=== PATIENT | female | born 1970 | race Caucasian/White ===

== ENCOUNTER 2017-03-22 15:00 | Emergency (ER) | payer BC, OTHER ==
[2017-03-22 15:11] VITALS: BMI 24.2
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
[2017-03-22 17:01] LABS: URINE MARIJUANA THC NEGATIVE ng/ml (CUTOFF=50)
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
[2017-03-22 17:50] VITALS: BP 141/79; PULSE 71; TEMP 98.2
--- NOTE | 2017-03-23 11:36 | EKG ---
Test Reason : Blood Pressure : / mmHG Vent. Rate : 070 BPM Atrial Rate : 070 BPM P-R Int : 154 ms QRS Dur : 086 ms QT Int : 386 ms P-R-T Axes : 067 068 055 degrees QTc Int : 416 ms NORMAL SINUS RHYTHM NORMAL ECG WHEN COMPARED WITH ECG OF 29-AUG-2012 01:47, NO SIGNIFICANT CHANGE WAS FOUND Confirmed by NEMESIO ROJAS MD ([id number]) on 03/23/2017 11:36:09 AM Referred By: Confirmed By:NEMESIO ROJAS MD
== END 2017-03-22 17:38 | disposition home or self-care (01) ==
LOC: JER 15:00
DX: F10.120 Alcohol abuse with intoxication, uncomplicated (principal); I10 Essential (primary) hypertension
CPT/HCPCS: 80307; 84703; 93005; 93010; 99282-25

== ENCOUNTER 2019-02-12 15:06 | Emergency (ER) | payer OTHER, BC ==
[2019-02-12 15:12] VITALS: BP 141/90; PULSE 70; TEMP 98; BMI 26.6
--- NOTE | 2019-02-12 15:13 | PDOC ---
Rapid Medical Evaluation Time Seen by Provider: 02/12/19 15:08 Medical Evaluation: Allergies Allergy/AdvReac Type Severity Reaction Status Date / Time No Known Allergies Allergy Verified 03/22/17 15:11 02/12/19 15:10 I have performed a brief in-person evaluation of this patient. The patient presents with a chief complaint of:fell off chair at work today w/ lower back and L wrist pain Pertinent physical exam findings:marion in place to L wrist I have ordered the following:xray wrist The patient will proceed to the ED for further evaluation. Discharge Disposition - Diagnosis Wrist injury Qualifiers: Encounter type: initial encounter Laterality: left Qualified Code(s): S69.92XA - Unspecified injury of left wrist, hand and finger(s), initial encounter - Referrals - Patient Instructions - Post Discharge Activity
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
== END 2019-02-12 16:22 | disposition home or self-care (01) ==
LOC: JERFT 15:06
PROC: 2W3DX1Z Immobilization of Left Lower Arm using Splint (ICD-10-PCS; principal; 2019-02-12)
DX: S39.012A Strain of muscle, fascia and tendon of lower back, initial encounter (principal); S16.1XXA Strain of muscle, fascia and tendon at neck level, initial encounter; S63.502A Unspecified sprain of left wrist, initial encounter; W07.XXXA Fall from chair, initial encounter; Y93.89 Activity, other specified; Y92.218 Other school as the place of occurrence of the external cause; Y99.0 Civilian activity done for income or pay
CPT/HCPCS: 72050-TC-FY; 72100-TC-FY; 73110-TC-LT-FY; 73130-TC-LT-FY; 99282-25

== ENCOUNTER 2019-10-21 02:39 | Emergency (ER) | payer BC, OTHER ==
[2019-10-21 02:43] VITALS: BMI 27.4
--- NOTE | 2019-10-21 03:04 | PDOC ---
History of Present Illness - General Chief Complaint: Blood Pressure Problem Stated Complaint: HIGH BP Time Seen by Provider: 10/21/19 02:44 - History of Present Illness Initial Comments: Pam Mccarty is a 49 y/o female with PMH significant for HTN and HLD presenting today with high blood pressure. Reports that she was told last week she had HLD in the 300s and started on a statin. Three days ago she started taking her blood pressure and was found to be high in the 180s. She has been taking it every day and today found it in the 220s and called EMS. Reports mild lightheadedness that started yesterday and mid sternal chest pain that is reproducible and non pleuritic that started just prior calling EMS. No shortness of breath/vision changes. Reports urinary frequency. No change in stool. No abdominal pain. No back pain. No leg swelling. Meds: olmesartan, atorvastatin Past History - Medical History Allergies/Adverse Reactions: Allergies Allergy/AdvReac Type Severity Reaction Status Date / Time No Known Allergies Allergy Verified 10/21/19 02:43 Home Medications: Ambulatory Orders Atorvastatin Ca [Lipitor] mg PO HS 10/21/19 Cephalexin [Keflex] 500 mg PO QID 7 Days #28 capsule 10/21/19 Olmesartan Medoxomil [Benicar] mg PO DAILY 10/21/19 COPD: No HTN: Yes Hypercholesterolemia: Yes - Reproductive History Ectopic : Yes - Immunization History Td Vaccination: No - Psycho-Social/Smoking History Smoking Status: No Smoking History: Never smoked Number of Cigarettes Smoked Daily: 0 - Substance Abuse Hx (Audit-C & DAST Scrn) How often the patient has a drink containing alcohol: Never Score: In Men: 4 or > Positive; In Women: 3 or > Positive: 0 Screen Result (Pos requires Nsg. Audit-10AR): Negative In the last yr the pt used illegal drug/Rx for NonMed reason: No Score: Yes response is considered Positive: 0 Screen Result (Positive result requires Nsg. DAST-10): Negative Review of Systems - Review of Systems Comments:: GENERAL/CONSTITUTIONAL: No fever or chills. No weakness. HEAD, EYES, EARS, NOSE AND THROAT: No change in vision. No change in hearing. No sore throat._ CARDIOVASCULAR: Reports mid sternal chest pain. No shortness of breath_ RESPIRATORY: Denies cough, hemoptysis_ GASTROINTESTINAL: No nausea, vomiting, diarrhea or constipation._ GENITOURINARY: No dysuria. Reports mild urinary frequency. MUSCULOSKELETAL: No joint or muscle swelling or pain. No neck or back pain._ SKIN: No rash_ NEUROLOGIC: Reports lightheadedness. No headache, vertigo, loss of consciousness, or change in strength/sensation._ ENDOCRINE: No increased thirst. No abnormal weight change_ HEMATOLOGIC/LYMPHATIC: No anemia, easy bleeding, or history of blood clots._ ALLERGIC/IMMUNOLOGIC: No hives or skin allergy._ *Physical Exam - Vital Signs Last Vital Signs Temp Pulse Resp BP Pulse Ox 97.8 F 74 18 184/101 H 100 10/21/19 02:41 10/21/19 02:41 10/21/19 02:41 10/21/19 02:41 10/21/19 02:41 - Physical Exam GENERAL: Awake, alert, and oriented to person/place/time, in no acute distress_ HEAD: No signs of trauma, normocephalic, atraumatic _ EYES: PERRLA, EOMI, sclera anicteric, conjunctiva clear_ ENT: Hearing grossly normal, nares patent, oropharynx clear without exudates. No uvular deviation. Moist mucosa_ NECK: Normal ROM, supple, no lymphadenopathy, JVD, or masses_ CHEST: TTP mid sternal chest wall with no trauma, bruising, rash. LUNGS: No distress, speaks in full sentences, clear to auscultation bilaterally _ HEART: Regular rate and rhythm, normal S1 and S2, no murmurs appreciated, peripheral pulses normal and equal bilaterally._ ABDOMEN: Soft, nontender, normoactive bowel sounds. No guarding, no rebound. No masses_ EXTREMITIES: Normal inspection, Normal range of motion, no edema. No clubbing or cyanosis_ NEUROLOGICAL: Cranial nerves II through XII grossly intact. Normal speech, normal gait, no focal sensorimotor deficits _ SKIN: Warm, Dry, normal turgor, no rashes or lesions noted_ ED Treatment Course - LABORATORY CBC & Chemistry Diagram: 10/21/19 03:03 10/21/19 03:03 - RADIOLOGY Radiology Studies Ordered: Category Date Time Status CHEST X-RAY PORTABLE* [RAD] Stat Radiology 10/21/19 02:53 Ordered Medical Decision Making - Medical Decision Making 10/21/19 03:03 49F hx of HTN HLD presenting today with concern for high blood pressure and mid sternal reproducible chest pain. -cbc, cmp -ekg, trop, cxr -coags 10/21/19 03:11 EKG shows 68 bpm, NSR, no axis deviation, no ST elevation, QTc 431, nml interv als. 10/21/19 04:05 CXR negative for acute chest pathology. 10/21/19 04:10 Labs reviewed. Laboratory Last Values WBC 3.6 K/mm3 (4.0-10.0) L 10/21/19 03:03 RBC 4.37 M/mm3 (3.60-5.2) 10/21/19 03:03 Hgb 13.4 GM/dL (10.7-15.3) 10/21/19 03:03 Hct 40.4 % (32.4-45.2) 10/21/19 03:03 MCV 92.5 fl (80-96) 10/21/19 03:03 MCH 30.6 pg (25.7-33.7) 10/21/19 03:03 MCHC 33.1 g/dl (32.0-36.0) 10/21/19 03:03 RDW 13.6 % (11.6-15.6) D 10/21/19 03:03 Plt Count 239 K/MM3 (134-434) 10/21/19 03:03 MPV 10.2 fl (7.5-11.1) 10/21/19 03:03 Absolute Neuts (auto) 1.8 K/mm3 (1.5-8.0) 10/21/19 03:03 Neutrophils % 50.5 % (42.8-82.8) 10/21/19 03:03 Lymphocytes % 35.6 % (8-40) 10/21/19 03:03 Monocytes % 11.4 % (3.8-10.2) H 10/21/19 03:03 Eosinophils % 1.7 % (0-4.5) 10/21/19 03:03 Basophils % 0.8 % (0-2.0) 10/21/19 03:03 Nucleated RBC % 0 % (0-0) 10/21/19 03:03 PT with INR 10.70 SEC (9.7-13.0) 10/21/19 03:03 INR 0.91 (0.83-1.09) 10/21/19 03:03 PTT (Actin FS) 37.8 SECONDS (25.2-36.5) H 10/21/19 03:03 Sodium 138 mmol/L (136-145) 10/21/19 03:03 Potassium 4.0 mmol/L (3.5-5.1) 10/21/19 03:03 Chloride 103 mmol/L (98-107) 10/21/19 03:03 Carbon Dioxide 29 mmol/L (21-32) 10/21/19 03:03 Anion Gap 6 MMOL/L (8-16) L 10/21/19 03:03 BUN 18.8 mg/dL (7-18) H 10/21/19 03:03 Creatinine 0.6 mg/dL (0.55-1.3) 10/21/19 03:03 Est GFR (CKD-EPI)AfAm 123.18 10/21/19 03:03 Est GFR (CKD-EPI)NonAf 106.28 10/21/19 03:03 Random Glucose 95 mg/dL (74-106) 10/21/19 03:03 Calcium 8.9 mg/dL (8.5-10.1) 10/21/19 03:03 Total Bilirubin 0.2 mg/dL (0.2-1) 10/21/19 03:03 AST 37 U/L (15-37) 10/21/19 03:03 ALT 43 U/L (13-61) 10/21/19 03:03 Alkaline Phosphatase 92 U/L (45-117) 10/21/19 03:03 Creatine Kinase 77 U/L (26-192) 10/21/19 03:03 Troponin I < 0.02 ng/ml (0.00-0.05) 10/21/19 03:03 Total Protein 6.2 g/dl (6.4-8.2) L 10/21/19 03:03 Albumin 2.8 g/dl (3.4-5.0) L 10/21/19 03:03 Pt reassessed. BP 140s. Reports much improvement. Will draw 2nd troponin. Pt added that she took a second dose of olmesartan this evening when her BP was 220. 10/21/19 06:30 Labs reviewed. Laboratory Tests 10/21/19 10/21/19 10/21/19 03:03 03:03 03:03 WBC 3.6 L RBC 4.37 Hgb 13.4 Hct 40.4 MCV 92.5 MCH 30.6 MCHC 33.1 RDW 13.6 D Plt Count 239 MPV 10.2 Absolute Neuts (auto) 1.8 Neutrophils % 50.5 Lymphocytes % 35.6 Monocytes % 11.4 H Eosinophils % 1.7 Basophils % 0.8 Nucleated RBC % 0 PT with INR 10.70 INR 0.91 PTT (Actin FS) 37.8 H Sodium 138 Potassium 4.0 Chloride 103 Carbon Dioxide 29 Anion Gap 6 L BUN 18.8 H Creatinine 0.6 Est GFR (CKD-EPI)AfAm 123.18 Est GFR (CKD-EPI)NonAf 106.28 Random Glucose 95 Calcium 8.9 Total Bilirubin 0.2 AST 37 ALT 43 Alkaline Phosphatase 92 Creatine Kinase 77 Troponin I < 0.02 Total Protein 6.2 L Albumin 2.8 L Urine Color Urine Appearance Urine pH Ur Specific [place] Urine Protein Urine Glucose (UA) Urine Ketones Urine Blood Urine Nitrite Urine Bilirubin Urine Urobilinogen Ur Leukocyte Esterase Urine WBC (Auto) Urine RBC (Auto) Urine Casts (Auto) U Epithel Cells (Auto) Urine Bacteria (Auto) 10/21/19 10/21/19 03:57 05:18 WBC RBC Hgb Hct MCV MCH MCHC RDW Plt Count MPV Absolute Neuts (auto) Neutrophils % Lymphocytes % Monocytes % Eosinophils % Basophils % Nucleated RBC % PT with INR INR PTT (Actin FS) Sodium Potassium Chloride Carbon Dioxide Anion Gap BUN Creatinine Est GFR (CKD-EPI)AfAm Est GFR (CKD-EPI)NonAf Random Glucose Calcium Total Bilirubin AST ALT Alkaline Phosphatase Creatine Kinase Troponin I < 0.02 Total Protein Albumin Urine Color Yellow Urine Appearance Clear Urine pH 6.5 Ur Specific [place] 1.010 Urine Protein 3+ H Urine Glucose (UA) Negative Urine Ketones Negative Urine Blood 1+ H Urine Nitrite Negative Urine Bilirubin Negative Urine Urobilinogen 0.2 Ur Leukocyte Esterase 2+ H Urine WBC (Auto) 487 Urine RBC (Auto) 25 Urine Casts (Auto) 1 U Epithel Cells (Auto) 10 Urine Bacteria (Auto) 1490 2nd trop negative. Plan to d/c home with keflex for UTI. All questions answered. Return precautions given. Pt verbalized understanding and agreement with plan. PCP f/u for improved BP control. Discharge - Discharge Information Problems reviewed: Yes Clinical Impression/Diagnosis: Hypertension, UTI (urinary tract infection) Condition: Stable Disposition: HOME - Admission No - Additional Discharge Information Prescriptions: Cephalexin [Keflex] 500 mg PO QID 7 Days #28 capsule - Follow up/Referral Referrals: Leisa Toney MD [Primary Care Provider] - - Patient Discharge Instructions Patient Printed Discharge Instructions: DI for High Blood Pressure Additional Instructions: Please take Keflex (antibiotic) 500 mg four times a day for 1 week for your urinary tract infection. Please continue taking your blood pressure and cholesterol medications as prescribed. Please make a follow up appointment with your primary care doctor to discuss medications for improved blood pressure control. If you experience any new, worsening, or concerning symptoms, including chest pain, shortness of breath, dizziness, vision changes, headache, or any other concerns, please return to the emergency department. - Post Discharge Activity
[2019-10-21 03:05] VITALS: TEMP 98.1
[2019-10-21 03:26] LABS: BASO % 0.8 % (0-2.0); EOS % 1.7 % (0-4.5); HEMATOCRIT 40.4 % (32.4-45.2); HEMOGLOBIN 13.4 GM/dL (10.7-15.3); LYMPH % 35.6 % (8-40); MCH 30.6 pg (25.7-33.7); MCHC 33.1 g/dl (32.0-36.0); MEAN CELL VOLUME 92.5 fl (80-96); MEAN PLT VOLUME 10.2 fl (7.5-11.1); MONO % 11.4 % (3.8-10.2); NEUT % 50.5 % (42.8-82.8); PLATELET COUNT 239 K/MM3 (134-434); RBC 4.37 M/mm3 (3.60-5.2); RDW 13.6 % (11.6-15.6); WHITE BLOOD COUNT 3.6 K/mm3 (4.0-10.0)
[2019-10-21 03:36] LABS: INR 0.91 (0.83-1.09); PROTHROMBIN TIME (PATIENT) 10.7 SEC (9.7-13.0)
[2019-10-21 03:39] LABS: ACTIVATED PTT 37.8 SECONDS (25.2-36.5)
--- NOTE | 2019-10-21 03:43 | PDOC ---
Attending Attestation - Resident Resident Name: Carlos Eduardo Wise - ED Attending Attestation I have performed the following: I have examined & evaluated the patient, The case was reviewed & discussed with the resident, I agree w/resident's findings & plan, Exceptions are as noted - HPI HPI: 10/21/19 03:40 49 F with h/o HTN, HLD presenting with elevated BP at home. Pt states that she started measuring her BP 3 days ago, and each day it has been elevated, up to the 220s systolic. Pt does not know what her baseline BP is but takes olmesartan. Pt also endorses transient lightheadedness and midsternal chest pain today that have both resolved. Denies SOB. Denies CORREA. Denies back pain. - Physicial Exam PE: 10/21/19 03:42 See resident exam - Medical Decision Making 10/21/19 03:42 49 F with elevated BP. Likely chronic. Also with transient episode of lightheadedness and chest pain today. Will r/o ACS. EKG with no ischemic changes. Pt with equal pulses, making dissection unlikely. No active pain at this time. - Labs, trop 10/21/19 06:41 Labs unremarkable, Trop negative x2 Pt is well appearing, with normal vitals. Clinically stable for DC at this time. I discussed the physical exam findings, ancillary test results and final diagnoses with the patient. I answered all of the patient's questions. The patient was satisfied with the care received and felt comfortable with the discharge plan and treatment plan. The patient agrees to follow up with the primary care physician within 24-72 hours. Please note this patient was evaluated during the COVID-19 crisis with the presidential [place] Act Declaration and the [place] governma executive order number 202. He/she was evaluated and clinical decisions were made relative to healthcare system resources as well as clinical picture during a pandemic crisis situation. Discharge - Discharge Information Problems reviewed: Yes Clinical Impression/Diagnosis: Hypertension, UTI (urinary tract infection) Condition: Stable Disposition: HOME - Additional Discharge Information Prescriptions: Cephalexin [Keflex] 500 mg PO QID 7 Days #28 capsule - Follow up/Referral Referrals: Leisa Toney MD [Primary Care Provider] - - Patient Discharge Instructions Patient Printed Discharge Instructions: DI for High Blood Pressure Additional Instructions: Please take Keflex (antibiotic) 500 mg four times a day for 1 week for your urinary tract infection. Please continue taking your blood pressure and cholesterol medications as prescribed. Please make a follow up appointment with your primary care doctor to discuss medications for improved blood pressure control. If you experience any new, worsening, or concerning symptoms, including chest pain, shortness of breath, dizziness, vision changes, headache, or any other concerns, please return to the emergency department. - Post Discharge Activity Vital Signs - Vital Signs Blood Pressure: 140/93
[2019-10-21 03:47] LABS: ALBUMIN 2.8 g/dl (3.4-5.0); ALK PHOS 92 U/L (45-117); ANION GAP 6 MMOL/L (8-16); BILIRUBIN,TOTAL 0.2 mg/dL (0.2-1); BLOOD UREA NITROGEN 18.8 mg/dL (7-18); CALCIUM 8.9 mg/dL (8.5-10.1); CHLORIDE 103 mmol/L (98-107); CO2 29 mmol/L (21-32); CREATININE 0.6 mg/dL (0.55-1.3); GLUCOSE,RANDOM 95 mg/dL (74-106); SGOT/AST 37 U/L (15-37); SGPT/ALT 43 U/L (13-61); SODIUM 138 mmol/L (136-145); TOT PROT 6.2 g/dl (6.4-8.2)
[2019-10-21 04:25] LABS: EPI CELLS 10 /uL (0-25.1); HYALINE CASTS 1 /uL (0-3.1); PH,URINE 6.5 (5.0-8.0); URINE APPEARANCE CLEAR; URINE BACTERIA 1490 /uL (0-1359); URINE BILIRUBIN NEGATIVE (NEGATIVE); URINE COLOR YELLOW; URINE GLUCOSE (UA) NEGATIVE (NEGATIVE); URINE KETONE NEGATIVE (NEGATIVE); URINE LEUK ESTERASE 2+ (NEGATIVE); URINE NITRITE NEGATIVE (NEGATIVE); URINE PROTEIN 3+ (NEGATIVE); URINE RBC 25 /uL (0-23.9); URINE UROBILINOGEN 0.2 mg/dL (0.2-1.0); URINE WBC 487 /uL (0-25.8)
[2019-10-21 06:11] VITALS: PULSE 60
[2019-10-21 06:42] VITALS: BP 140/93
--- NOTE | 2019-10-21 10:20 | EKG ---
Test Reason : Blood Pressure : / mmHG Vent. Rate : 068 BPM Atrial Rate : 068 BPM P-R Int : 148 ms QRS Dur : 084 ms QT Int : 406 ms P-R-T Axes : 060 071 045 degrees QTc Int : 431 ms NORMAL SINUS RHYTHM NORMAL ECG WHEN COMPARED WITH ECG OF 22-MAR-2017 16:28, No significant changes Confirmed by Elizabeth Silva ([id number]) on 10/21/2019 10:19:34 AM Referred By: Confirmed By:Elizabeth Silva
== END 2019-10-21 06:52 | disposition home or self-care (01) ==
LOC: JER 02:39
DX: I10 Essential (primary) hypertension (principal); N39.0 Urinary tract infection, site not specified
CPT/HCPCS: 36415; 71045-TC-FY; 80053; 81003; 82550; 84484; 85025; 85610; 85730; 93005; 93010; 99285-25

== ENCOUNTER 2020-06-23 04:38 | Day surgery (SDC) | payer BC, OTHER ==
[2020-06-19 10:14] VITALS: BMI 25.7
[2020-06-23 08:50] LABS: INR 0.94 (0.83-1.09); PROTHROMBIN TIME (PATIENT) 11.6 SEC (9.7-13.0)
[2020-06-23 08:52] LABS: ACTIVATED PTT 33.9 SECONDS (25.2-36.5)
[2020-06-23 08:54] LABS: HEMATOCRIT 38.5 % (32.4-45.2); HEMOGLOBIN 13.3 GM/dL (10.7-15.3); MCH 31.3 pg (25.7-33.7); MCHC 34.6 g/dl (32.0-36.0); MEAN CELL VOLUME 90.4 fl (80-96); MEAN PLT VOLUME 9.8 fl (7.5-11.1); PLATELET COUNT 223 K/MM3 (134-434); RBC 4.26 M/mm3 (3.60-5.2); RDW 13.8 % (11.6-15.6); WHITE BLOOD COUNT 3.7 K/mm3 (4.0-10.0)
[2020-06-23] MEDS ORDERED: MIDAZOLAM HCL 2 MG/2 ML SINGLE DOSE VIAL IVPUSH ONE (12:02)
[2020-06-23] MEDS ORDERED: ACETAMINOPHEN 500 MG TABLET (FP) PO ONE ×2 (14:33→17:30)
[2020-06-23] MEDS ORDERED: ACETAMINOPHEN 325 MG TABLET (FP) ONE (14:34)
[2020-06-23 16:55] VITALS: BP 104/56; PULSE 70; TEMP 97.7
== END 2020-06-23 16:25 | disposition home or self-care (01) ==
LOC: JRADIR 04:38
PROVIDERS: ATTEND Internal Medicine Nephrology
PROC: 0TB03ZX Excision of Right Kidney, Percutaneous Approach, Diagnostic (ICD-10-PCS; principal; 2020-06-23)
DX: R80.9 Proteinuria, unspecified (principal); I10 Essential (primary) hypertension
CPT/HCPCS: 36415; 50200; 84703; 85027; 85610; 85730; 88300-TC; 88329

== ENCOUNTER 2024-04-13 23:47 | Observation (INO) | payer BC, OTHER ==
[2024-04-14 01:44] LABS: BASO % 0.9 % (0-2.0); EOS % 3.3 % (0-4.5); HEMATOCRIT 42.7 % (32.4-45.2); HEMOGLOBIN 14.2 GM/dL (10.7-15.3); LYMPH % 48.9 % (8-40); MCH 30.7 pg (25.7-33.7); MCHC 33.3 g/dl (32.0-36.0); MEAN CELL VOLUME 92.1 fl (80-96); MEAN PLT VOLUME 9.4 fl (7.5-11.1); MONO % 11.6 % (3.8-10.2); NEUT % 35.3 % (42.8-82.8); PLATELET COUNT 186 10^3/uL (134-434); RBC 4.63 M/mm3 (3.60-5.2); RDW 13.4 % (11.6-15.6)
[2024-04-14 01:56] LABS: INR 0.87 (0.83-1.09)
[2024-04-14 01:58] LABS: ACTIVATED PTT 32.3 SECONDS (25.2-36.5)
[2024-04-14] MEDS ORDERED: ACETAMINOPHEN INJECTION 100 ML ONE (01:59)
[2024-04-14] MEDS ORDERED: KETOROLAC TROMETHAMINE 15 MG/ML VIAL ONE (01:59)
[2024-04-14] MEDS: KETOROLAC TROMETHAMINE 15 MG/ML VIAL IVPUSH ONE (02:03)
[2024-04-14] MEDS: ACETAMINOPHEN 1000 MG/100 ML BAG IVPB ONE (02:03)
[2024-04-14] MEDS: SODIUM CHLORIDE 0.9% 500 ML INFUS.BAG IV ONE (02:03)
[2024-04-14 02:46] LABS: POTASSIUM 3.6 mmol/L (3.5-5.1)
[2024-04-14 02:48] LABS: CALCIUM 9.7 mg/dL (8.5-10.1)
[2024-04-14 02:49] LABS: ALBUMIN 3.5 g/dl (3.4-5.0)
[2024-04-14 02:52] LABS: CREATININE 0.8 mg/dL (0.55-1.3)
[2024-04-14 02:53] LABS: BILIRUBIN,TOTAL 0.2 mg/dL (0.2-1)
[2024-04-14] MEDS ORDERED: MECLIZINE HCL 25 MG TABLET (FP) ONE (11:33)
[2024-04-14] MEDS: HEPARIN NA (PORCINE) 5,000 UNITS/ML 1ML VIAL SQ SCH (11:40)
[2024-04-14 15:00] VITALS: BP 124/79; PULSE 55; RESP 18; TEMP 97.5
[2024-04-14] MEDS ORDERED: LOSARTAN 50MG/HCTZ 12.5MG 1 TAB PO SCH (15:00)
[2024-04-14 15:18] VITALS: BMI 28.8
[2024-04-14] MEDS: MECLIZINE HCL 25 MG TABLET (FP) PO PRN (15:43)
[2024-04-14] MEDS ORDERED: ATORVASTATIN CA 20 MG TABLET (FP) PO SCH (22:00)
[2024-04-14] MEDS ORDERED: ROSUVASTATIN CA 10 MG TABLET PO SCH (22:00)
== END 2024-04-14 17:45 | disposition home or self-care (01) ==
LOC: JER 23:47 → JERBED 04-14 09:38 → J7W 04-14 14:56
PROVIDERS: ADMIT Internal Medicine; ATTEND Internal Medicine
PROC: 3E033NZ Introduction of Analgesics, Hypnotics, Sedatives into Peripheral Vein, Percutaneous Approach (ICD-10-PCS; principal; 2024-04-14)
PROC: 3E0333Z Introduction of Anti-inflammatory into Peripheral Vein, Percutaneous Approach (ICD-10-PCS; 2024-04-14)
PROC: 3E0337Z Introduction of Electrolytic and Water Balance Substance into Peripheral Vein, Percutaneous Approach (ICD-10-PCS; 2024-04-14)
DX: R42 Dizziness and giddiness (principal); J06.9 Acute upper respiratory infection, unspecified; I10 Essential (primary) hypertension; E78.5 Hyperlipidemia, unspecified; R50.9 Fever, unspecified; R26.2 Difficulty in walking, not elsewhere classified
CPT/HCPCS: 0241U-QW; 36415; 70450-TC; 70496-TC; 70498-TC; 71045-TC-FY; 80053; 84484; 85025; 85610; 85730; 93005; 93010; 96374; 96375; 99285-25; G0378; J0131; Q9967